=== PATIENT | male | born 1990 | race Caucasian/White ===

== ENCOUNTER 2019-10-16 21:04 | Emergency (ER) | payer OTHER ==
--- NOTE | 2019-10-16 21:53 | EDM.PDOC ---
ED HPI GENERAL MEDICAL PROBLEM - General Chief Complaint: Lower Extremity Injury/Pain Stated Complaint: KNEE INJURY Time Seen by Provider: 10/16/19 21:40 Source of Information: Reports: Patient, RN Notes Reviewed History Limitations: Reports: No Limitations - History of Present Illness INITIAL COMMENTS - FREE TEXT/NARRATIVE: States he hit the right knee as he was getting into car about 620pm , since then has been increasingly painful and swollen . has pain with ambulation no numbness or tingling pain localized to the upper pole of the knee , and upper patella Onset: Today Onset Date: 10/16/19 Onset Time: 18:30 Duration: Getting Worse Location: Reports: Lower Extremity, Right (patella of right knee) Quality: Reports: Ache, Dull Severity: Moderate Improves with: Reports: Cold Therapy, Immobilization, Medication, Rest Worsens with: Reports: Heat Therapy, Movement Associated Symptoms: Reports: No Other Symptoms Treatments ADMEASURER: Reports: NSAIDS right knee Pain Score (Numeric/FACES): 6 - Related Data Allergies Allergy/AdvReac Type Severity Reaction Status Date / Time No Known Allergies Allergy Verified 10/16/19 21:48 Home Meds: Home Meds NK [No Known Home Meds] 10/16/19 [History] Review of Systems - Review of Systems Review Of Systems: Comprehensive ROS is negative, except as noted in HPI. ED EXAM, GENERAL - Physical Exam Exam: See Below Exam Limited By: No Limitations General Appearance: Alert, WD/WN, No Apparent Distress Ears: Normal External Exam Nose: Normal Inspection Head: Atraumatic, Normocephalic Neck: Supple Respiratory/Chest: No Respiratory Distress Extremities: Normal Inspection, Normal Range of Motion, Normal Capillary Refill , Leg Pain, Limited Range of Motion (right knee / leg due to swelling and tenderness in jaylin==he right knee ), Increased Warmth Neurological: Alert, Oriented, CN II-XII Intact Psychiatric: Normal Affect Skin Exam: Warm, Dry Lymphatic: No Adenopathy Course - Vital Signs Last Recorded V/S: Last Vital Signs Temp 36.7 C 10/16/19 21:04 Pulse 102 H 10/16/19 21:04 Resp 17 10/16/19 21:04 BP 154/79 H 10/16/19 21:04 Pulse Ox 99 10/16/19 21:04 - Orders/Labs/Meds Orders: Active Orders 24 hr Category Date Time Status Knee 3V Rt [CR] Stat Exams 10/16/19 22:09 Taken - Re-Assessments/Exams Free Text/Narrative Re-Assessment/Exam: 10/16/19 21:55 xray done Departure - Departure Time of Disposition: 10:30 Disposition: Home, Self-Care 01 Condition: Fair Clinical Impression: Contusion of right patella, Contusion of right knee, initial encounter, Patellar fracture - Discharge Information *PRESCRIPTION DRUG MONITORING PROGRAM REVIEWED*: Not Applicable *COPY OF PRESCRIPTION DRUG MONITORING REPORT IN PATIENT VIRAL: Not Applicable Instructions: Contusion, [id number] Referrals: PCP,None [Primary Care Provider] - Forms: ED Department Discharge Additional Instructions: 1)Keep immobilizer on till you are seen by Ortho 2) Ibuprofen 600mg 3 times daily as needed Cold compress to knee 3 times daily for 20mins Keep leg elevated as often as possible 3) Await review of Xray by radiologist for further recommendations 4) Light duty till seen by Ortho Sepsis Event Note - Focused Exam Vital Signs: Vital Signs Temp Pulse Resp BP Pulse Ox 10/16/19 21:04 36.7 C 102 H 17 154/79 H 99 Date Exam was Performed: 10/16/19 Time Exam was Performed: 22:23 - My Orders Last 24 Hours: My Active Orders 10/16/19 22:09 Knee 3V Rt [CR] Stat - Assessment/Plan Last 24 Hours: My Active Orders 10/16/19 22:09 Knee 3V Rt [CR] Stat
--- NOTE | 2019-10-17 17:17 | CR ---
INDICATION: Fall, pain right patellar area. RIGHT KNEE: Five images of the right knee were obtained in frontal, lateral, and patellar sunrise projections and revealed slight prominence at the suprapatellar bursa raising question of a minimal knee joint effusion. No other significant bone or joint abnormality was identified - no acute fracture or dislocation was seen - normal bone density is noted. Additional more advanced imaging may be warranted depending upon clinical correlation. [id number]
== END 2019-10-16 22:41 | disposition home or self-care (01) ==
LOC: FB.ED 21:04
DX: S82.001A Unspecified fracture of right patella, initial encounter for closed fracture (principal); W22.09XA Striking against other stationary object, initial encounter; Y93.89 Activity, other specified
CPT/HCPCS: 73562-RT; 99283-25